=== PATIENT | female | born 1965 | race Caucasian/White ===

== ENCOUNTER → 2020-04-14 09:14 | Outpatient (BNVA) | payer BC, SELFPAY | PROVIDERS: Family Provider Nurse Practitioner Family; Visit Provider Nurse Practitioner Family | DX: Z01.419 Encounter for gynecological examination (general) (routine) without abnormal findings (principal); K21.9 Gastro-esophageal reflux disease without esophagitis; E78.2 Mixed hyperlipidemia; R53.83 Other fatigue; E55.9 Vitamin D deficiency, unspecified | CPT/HCPCS: 36415; 80053; 80061; 81001; 82306; 83036; 84443; 85025; 88175 ==

== ENCOUNTER → 2021-07-29 12:00 | Outpatient (BNVA) | payer OTHER, SELFPAY | PROVIDERS: Family Provider Nurse Practitioner Family; PCP Nurse Practitioner Family; Visit Provider Nurse Practitioner Family | DX: R53.83 Other fatigue (principal); E55.9 Vitamin D deficiency, unspecified; E78.2 Mixed hyperlipidemia | CPT/HCPCS: 80053; 80061; 81003; 82306; 83036; 84443; 85025; 87086 ==

== ENCOUNTER → 2021-08-02 09:48 | Outpatient (BNVA) | payer OTHER, SELFPAY | PROVIDERS: Family Provider Nurse Practitioner Family; PCP Nurse Practitioner Family; Visit Provider Nurse Practitioner Family | DX: N39.0 Urinary tract infection, site not specified (principal); B95.5 Unspecified streptococcus as the cause of diseases classified elsewhere; R05.9 Cough, unspecified; Z01.419 Encounter for gynecological examination (general) (routine) without abnormal findings | CPT/HCPCS: 88175 ==

== ENCOUNTER 2021-09-21 14:12 | Outpatient (CLI) | payer OTHER, SELFPAY ==
--- NOTE | 2021-09-21 15:00 | MM_ITS ---
WS: [id number] BILATERAL DIGITAL SCREENING MAMMOGRAPHY WITH CAD CLINICAL INFORMATION: SCREEN HISTORY: Screening mammogram. No current complaints. COMPARISON: August 26, 2018 TECHNIQUE: Bilateral CC and MLO views. FINDINGS: The breasts are composed of heterogeneous fibroglandular density tissue, which can limit the detectio n of small underlying mass lesions. Ovoid 9 mm asymmetry in the posterior depth left breast best seen on the MLO view. Recommend further evaluation with spot compression views and ultrasound. Right breast is unchanged and unremarkable. MM/[place] [id number] IMPRESSION: BI-RADS: 0-Incomplete: Need additional imaging evaluation FOLLOW UP: Need Additional Imaging Ovoid 9 mm asymmetry in the posterior depth LEFT breast best seen on the MLO vi ew. Recommend further evaluation with spot compression views and ultrasound.
== END 2021-09-21 14:13 | disposition home or self-care (01) ==
LOC: RADSHAW 14:18
PROVIDERS: PCP Nurse Practitioner Family; Visit Provider Nurse Practitioner Family
DX: Z12.31 Encounter for screening mammogram for malignant neoplasm of breast (principal)
CPT/HCPCS: 77067

== ENCOUNTER → 2021-09-26 11:35 | Outpatient (BNVA) | payer OTHER, SELFPAY | PROVIDERS: PCP Nurse Practitioner Family; Visit Provider Nurse Practitioner Family | DX: R92.8 Other abnormal and inconclusive findings on diagnostic imaging of breast (principal); R10.9 Unspecified abdominal pain; G89.29 Other chronic pain; N39.0 Urinary tract infection, site not specified; N30.01 Acute cystitis with hematuria | CPT/HCPCS: 81000; 81003 ==

== ENCOUNTER 2021-10-13 13:21 | Outpatient (CLI) | payer OTHER, SELFPAY ==
--- NOTE | 2021-10-13 13:30 | MM_ITS ---
WS: [id number] LEFT DIGITAL MAMMOGRAPHY WITH CAD CLINICAL INFORMATION: R92.8 - Other abnormal and inconclusive findings on diagn... COMPARISON: September 21, 2021 TECHNIQUE: 2 views of the left breast were obtained. FINDINGS: The left breast is composed of heterogeneous fibroglandular density tissue, which can limit the detec tion of small underlying mass lesions. Persistent small asymmetric density measuring 9 mm posterior d epth left breast. This is less prominent today and partially compresses out. Ultrasound is pending. ULTRASOUND BREAST LEFT TECHNIQUE: Ultrasound left breast focused area of concern. FINDINGS: Ultrasound left breast at the 100-400 and 800-1000 position. Normal underlying breast tissue. No cyst ic or solid lesions. No lesions to target for biopsy. No suspicious findings. Recommend return to [facility] screening mammography. MM/[place] [id number] IMPRESSION: BI-RADS: 2-Benign FOLLOW UP: 1 Year Follow-up Recommend return to annual screening mammography.
--- NOTE | 2021-10-13 14:00 | US_ITS ---
WS: [id number] LEFT DIGITAL MAMMOGRAPHY WITH CAD CLINICAL INFORMATION: R92.8 - Other abnormal and inconclusive findings on diagn... COMPARISON: September 21, 2021 TECHNIQUE: 2 views of the left breast were obtained. FINDINGS: The left breast is composed of heterogeneous fibroglandular density tissue, which can limit the detec tion of small underlying mass lesions. Persistent small asymmetric density measuring 9 mm posterior d epth left breast. This is less prominent today and partially compresses out. Ultrasound is pending. ULTRASOUND BREAST LEFT TECHNIQUE: Ultrasound left breast focused area of concern. FINDINGS: Ultrasound left breast at the 100-400 and 800-1000 position. Normal underlying breast tissue. No cyst ic or solid lesions. No lesions to target for biopsy. No suspicious findings. Recommend return to [facility] screening mammography. US/US breast LT limited* [id number] IMPRESSION: BI-RADS: 2-Benign FOLLOW UP: 1 Year Follow-up Recommend return to annual screening mammography.
== END 2021-10-13 13:22 | disposition home or self-care (01) ==
LOC: RADSHAW 13:27
PROVIDERS: PCP Nurse Practitioner Family; Visit Provider Nurse Practitioner Family
DX: R92.8 Other abnormal and inconclusive findings on diagnostic imaging of breast (principal)
CPT/HCPCS: 76642; 77065

== ENCOUNTER → 2021-11-08 11:11 | Outpatient (BNVA) | payer OTHER, SELFPAY | PROVIDERS: PCP Nurse Practitioner Family; Visit Provider Internal Medicine | DX: Z20.822 Contact with and (suspected) exposure to COVID-19 (principal) | CPT/HCPCS: 87635 ==

== ENCOUNTER 2021-11-14 05:42 | Day surgery (SDC) | payer OTHER, SELFPAY ==
[2021-11-10 13:25] VITALS: BMI 22.1
[2021-11-14 06:13] VITALS: BP 101/70; PULSE 67; RESP 18; TEMP 36.6; O2SAT 99
[2021-11-14 06:26] LABS: OR HCG Qualitative Urine Negative (Negative)
[2021-11-14] MEDS: sodium chloride 0.9% 1,000 ML 30 ML IV (06:28)
--- NOTE | 2021-11-14 06:58 | ANES.PREANE2 ---
Pre-Anesthetic Assessment Height/Weight: Height 1.6 m Weight 56.699 kg Temp Pulse Resp BP Pulse Ox 97.9 F 67 18 101/70 99 11/14/21 06:13 11/14/21 06:13 11/14/21 06:13 11/14/21 06:13 11/14/21 06:13 Preop Diagnosis: abdominal pain Operation Date: 11/14/21 07:15 Proposed Procedures p EGD 50306/[id number]/r10.9/g89.29(Not Applicable) - Kevin Kunz MD s Colonoscopy(Not Applicable) - Kevin Kunz MD Was Beta [place] taken within 24 hours: N/A Was Clonidine taken within 24 hours: N/A Last intake: Intake Last Liquid Date 11/13/21 Last Liquid Time 22:00 Last Solid Date 11/12/21 Last Solid Time 21:30 Social Alcohol (4-5 beer every weekend) and No tobacco Exam alert, oriented x 3, clear to auscultation bilaterally and regular rate & rhythm Airway Submandibular: within normal limits Cervical ROM: within normal limits Mallampati: Class II Dentition: full Pulmonary None reported CV/HEM None reported None reported Hepatic None reported GI Gastroesophageal Reflux Disease Metabolic None reported Musc/skel None reported Neuropsych None reported Anesthetic Plan ASA status: 2 Anesthesia: MAC Risk of > 500 ml blood loss (7ml/kg in children): No Medications/Allergies Home Medications Medication Instructions Recorded Confirmed Last Taken Type apple cider vinegar 600 mg capsule 1 mg PO DAILY 04/14/20 11/10/21 11/12/21 History slippery elm bark 400 mg capsule 1 mg PO DAILY 04/14/20 11/10/21 11/12/21 History vitamin B complex (B 1 tab PO DAILY 04/14/20 11/10/21 11/12/21 History Complex-Vitamin B12) cholecalciferol (vitamin D3) 10 10 mcg PO DAILY 11/10/21 11/10/21 11/12/21 History mcg (400 unit) tablet (Vitamin D3) zinc 10 mg tablet 10 mg PO DAILY 11/10/21 11/10/21 11/12/21 History Allergies Allergy/AdvReac Type Severity Reaction Status Date / Time No Known Allergies Allergy Verified 10/13/21 09:43 Current Medications Generic Name Dose Route Start Last Admin Trade Name Freq PRN Reason Stop Dose Admin Sodium Chloride 1,000 mls @ 30 mls/hr 11/14/21 06:00 11/14/21 06:28 Sodium Chloride 0.9% IV 30 mls/hr .Q24H LYDIA Administration PFSH Anesthesia Medical History Abnormal mammogram of left breast Breast cancer screening Chronic abdominal pain Cough Family history of lung cancer Family history of ovarian cancer Fatigue GERD (gastroesophageal reflux disease) Group B streptococcal UTI Mixed hyperlipidemia Otitis media, chronic, bilateral Vitamin D deficiency Surgical History H/O colonoscopy February 2019, normal Per Dr. [place] [facility] [place] History Denies family history of Anesthesia complication Bleeding disorder Social History Smoking and tobacco status: never smoked Second hand smoke exposure: No Smoking risk assessment/counseling performed?: No Alcohol intake: current Alcohol intake frequency: few times a month Desire information about alcohol rehabilitation?: No Counseling given: No Desire information about substance/drug rehabilitation?: No Counseling given: No Female Reproductive History Para: 2 Spontaneous abortions: No Data Anesthesia Cardiac Studies: No Data to Display
--- NOTE | 2021-11-14 07:44 | W.PM.OPSFHP ---
Same Day Surgery H&P Indication for Procedure/HPI DATE OF PROCEDURE: November 14, 2021 CHIEF COMPLAINT/INDICATIONFOR SURGICAL PROCEDURE: Abdominal pain PREOP DIAGNOSIS: abdominal pain PLANNED PROCEDURE: Operation Date: 11/14/21 07:15 Proposed Procedures p EGD [id number]/r10.9/g89.29(Not Applicable) - Kevin Kunz MD s Colonoscopy(Not Applicable) - eKvin Kunz MD Medications/Allergies* Home Medications Medication Instructions Recorded Confirmed Type apple cider vinegar 600 mg capsule 1 mg PO DAILY 04/14/20 11/10/21 History slippery elm bark 400 mg capsule 1 mg PO DAILY 04/14/20 11/10/21 History vitamin B complex (B 1 tab PO DAILY 04/14/20 11/10/21 History Complex-Vitamin B12) cholecalciferol (vitamin D3) 10 10 mcg PO DAILY 11/10/21 11/10/21 History mcg (400 unit) tablet (Vitamin D3) zinc 10 mg tablet 10 mg PO DAILY 11/10/21 11/10/21 History Allergies/Adverse Reactions Allergy/AdvReac Type Severity Reaction Status Date / Time No Known Allergies Allergy Verified 10/13/21 09:43 Current Medications: Generic Name Dose Route Start Last Admin Trade Name Freq PRN Reason Stop Dose Admin Sodium Chloride 1,000 mls @ 30 mls/hr 11/14/21 06:00 11/14/21 06:28 Sodium Chloride 0.9% IV 30 mls/hr .Q24H LYDIA Administration Pertinent History/Comorbid Conditions* Medical History (Updated 09/26/21 @ 10:22 by LYRIC Sood) Abnormal mammogram of left breast Breast cancer screening Chronic abdominal pain Cough Family history of lung cancer Family history of ovarian cancer Fatigue GERD (gastroesophageal reflux disease) Group B streptococcal UTI Mixed hyperlipidemia Otitis media, chronic, bilateral Vitamin D deficiency Surgical History (Updated 04/17/20 @ 18:57 by LYRIC Sood) H/O colonoscopy February 2019, normal Per Dr. Kunz [facility] [place] Family History (Updated 09/10/20 @ 15:22 by Baylee Shepard RN) Denies family history of Anesthesia complication Bleeding disorder Social History Smoking and tobacco status: never smoked Second hand smoke exposure: No Smoking risk assessment/counseling performed?: No Alcohol intake: current Alcohol intake frequency: few times a month Desire information about alcohol rehabilitation?: No Counseling given: No Desire information about substance/drug rehabilitation?: No Counseling given: No Pertinent Exam Findings alert, oriented x 3, clear to auscultation bilaterally, regular rate & rhythm, operative site marked and procedure specific exam findings Recommendations Surgery/Procedure today Coding Level of Care Code [employer] for [employer]
[2021-11-14 08:09] VITALS: BP 89/61; PULSE 69; RESP 16; TEMP 36.1; O2SAT 95
--- NOTE | 2021-11-14 08:11 | ANE.PACU2 ---
Inpatient post-anesthesia follow up: Airway intact: Yes Vital signs: Temperature 97 F Pulse Rate 69 Respiratory Rate 16 Blood Pressure 89/61 Pulse Oximetry 95 Oxygen Delivery Me thod Nasal Cannula Oxygen Flow Rate 3 Fraction of Inspir ed Oxygen Hydration adequate: Yes Nausea and vomiting: No Pain level: 1 Mental status: Baseline
--- NOTE | 2021-11-14 08:17 | US_ITS ---
WS: [id number] RIGHT UPPER QUADRANT ULTRASOUND HISTORY: abd. pain COMPARISON: 07/30/2019 Liver: 12.0 cm in length. Normal size liver. No bile duct dilatation or mass. Portal Vein: Normal hepatopetal flow with monophasic waveform. Gallbladder: Normally distended gallbladder with no stones or wall thickening. CBD: 0.2 cm Pancreas: Normal size and echogenicity. Right kidney: 9.2 cm in length. Normal size and echogenicity. No hydronephrosis or mass. Aorta and IVC: Unremarkable abdominal aorta and IVC. No ascites. US/US gall bladder [id number] IMPRESSION: Normal RIGHT upper quadrant ultrasound.
[2021-11-14 08:20] VITALS: BP 105/78; PULSE 73; RESP 18; O2SAT 100
== END 2021-11-14 09:03 | disposition home or self-care (01) ==
PROVIDERS: Anesthesiology; PCP Nurse Practitioner Family; Visit Provider Internal Medicine
PROC: 0DJ08ZZ Inspection of Upper Intestinal Tract, Via Natural or Artificial Opening Endoscopic (ICD-10-PCS; CPT 43235; principal; 2021-11-14 07:15)
PROC: 0DJD8ZZ Inspection of Lower Intestinal Tract, Via Natural or Artificial Opening Endoscopic (ICD-10-PCS; CPT 45378; 2021-11-14 07:15)
DX: R10.13 Epigastric pain (principal); K21.9 Gastro-esophageal reflux disease without esophagitis; E78.2 Mixed hyperlipidemia; E55.9 Vitamin D deficiency, unspecified
CPT/HCPCS: 43235; 45378; 76705; 81025; 84703; J2704; J7030

== ENCOUNTER → 2022-01-23 15:10 | Outpatient (BNVA) | payer OTHER, SELFPAY | PROVIDERS: PCP Nurse Practitioner Family; Visit Provider Nurse Practitioner | DX: M54.50 Low back pain, unspecified (principal) | CPT/HCPCS: 81000 ==

== ENCOUNTER → 2022-08-15 13:34 | Outpatient (BNVA) | payer OTHER, SELFPAY | PROVIDERS: PCP Nurse Practitioner; Visit Provider Nurse Practitioner | DX: Z01.419 Encounter for gynecological examination (general) (routine) without abnormal findings (principal) | CPT/HCPCS: 80053; 82306; 84443; 85025; 88175 ==

== ENCOUNTER → 2022-08-30 16:02 | Outpatient (BNVA) | payer OTHER, SELFPAY | PROVIDERS: PCP Nurse Practitioner; Visit Provider Nurse Practitioner | DX: R87.9 Unspecified abnormal finding in specimens from female genital organs (principal); Z01.419 Encounter for gynecological examination (general) (routine) without abnormal findings | CPT/HCPCS: 88175 ==

== ENCOUNTER 2022-10-13 13:15 | Outpatient (CLI) | payer OTHER, SELFPAY ==
--- NOTE | 2022-10-13 13:27 | MM_ITS ---
WS: [id number] BILATERAL 3D TOMOSYNTHESIS DIGITAL SCREENING MAMMOGRAPHY WITH CAD CLINICAL INFORMATION: screening HISTORY: Screening mammogram. Chronic lumpy breasts. No new complaints. COMPARISON: 2020 TECHNIQUE: Bilateral CC and MLO views. FINDINGS: The breasts are composed of heterogeneous fibroglandular density tissue, which can limit the detectio n of small underlying mass lesions. No suspicious mass, asymmetry, calcifications, or architectural d istortion. No evidence of malignancy. A few incidental punctate calcifications. MM/[place] [id number] IMPRESSION: BI-RADS: 2-Benign FOLLOW UP: 1 Year Follow-up Recommend return to annual screening mammography.
== END 2022-10-13 13:16 | disposition home or self-care (01) ==
LOC: RAD 13:16
PROVIDERS: PCP Nurse Practitioner; Visit Provider Nurse Practitioner
DX: Z12.31 Encounter for screening mammogram for malignant neoplasm of breast (principal)
CPT/HCPCS: 77063; 77067

== ENCOUNTER → 2023-11-28 09:51 | Outpatient (BNVA) | payer OTHER, SELFPAY | PROVIDERS: PCP Nurse Practitioner; Visit Provider Nurse Practitioner Family | DX: E55.9 Vitamin D deficiency, unspecified (principal); Z01.419 Encounter for gynecological examination (general) (routine) without abnormal findings; R53.83 Other fatigue; Z79.899 Other long term (current) drug therapy; Z13.6 Encounter for screening for cardiovascular disorders; Z78.0 Asymptomatic menopausal state | CPT/HCPCS: 80053; 80061; 81003; 82306; 83036; 84443; 85025; 88175 ==

== ENCOUNTER 2023-12-05 10:08 | Outpatient (CLI) | payer OTHER, SELFPAY ==
--- NOTE | 2023-12-05 10:20 | MM_ITS ---
WS: [id number] BILATERAL SCREENING DIGITAL TOMOSYNTHESIS MAMMOGRAM WITH CAD HISTORY: SCREENING COMPARISON: 10/13/2022, 08/26/2018 Bilateral CC and MLO views with tomosynthesis and synthetic mammography submitted. Computer aided det ection analyzed. Breast composition: The breasts are extremely dense, which lowers the sensitivity of mammography. No suspicious masses, microcalcifications or architectural distortion. Benign calcifications LEFT breast . IMPRESSION: MM/[place] [id number] BI-RADS: 2-Benign FOLLOW UP: 1 Year Follow-up
== END 2023-12-05 10:09 | disposition home or self-care (01) ==
LOC: RAD 10:09
PROVIDERS: PCP Nurse Practitioner; Visit Provider Nurse Practitioner Family
DX: Z12.31 Encounter for screening mammogram for malignant neoplasm of breast (principal)
CPT/HCPCS: 77063; 77067

== ENCOUNTER → 2024-07-22 10:45 | Outpatient (BNVA) | payer OTHER, SELFPAY | PROVIDERS: PCP Nurse Practitioner Family; Visit Provider Nurse Practitioner Family | DX: R30.0 Dysuria (principal); R39.9 Unspecified symptoms and signs involving the genitourinary system | CPT/HCPCS: 81000 ==

== ENCOUNTER → 2024-11-28 09:42 | Outpatient (BNVA) | payer OTHER, SELFPAY | PROVIDERS: PCP Nurse Practitioner Family; Visit Provider Nurse Practitioner Family | DX: Z13.6 Encounter for screening for cardiovascular disorders (principal); Z12.4 Encounter for screening for malignant neoplasm of cervix; E78.2 Mixed hyperlipidemia; E55.9 Vitamin D deficiency, unspecified; Z01.419 Encounter for gynecological examination (general) (routine) without abnormal findings; Z79.899 Other long term (current) drug therapy | CPT/HCPCS: 80053; 80061; 81003; 82306; 83036; 84443; 85025; 88175 ==

== ENCOUNTER 2024-12-08 12:43 | Outpatient (CLI) | payer OTHER, SELFPAY ==
--- NOTE | 2024-12-08 12:53 | USR_ITS ---
PROCEDURE INFORMATION: Exam: US Pelvis Transabdominal, Complete, and US Pelvis Transvaginal, and US Duplex Artery and Vein, Ovaries, Complete, Non-obstetric Exam date and time: 12/08/2024 2:41 PM Age: 59 years old Clinical indication: Pelvic pain; Additional info: Pelvic perineal pain, PT having mammo too TECHNIQUE: Imaging protocol: Real-time complete transabdominal and transvaginal pelvic ultrasound (non-obstetric) with image documentation. Transvaginal imaging was used for better evaluation of the endometrium, adnexa, and/or cervix. Real-time duplex ultrasound scan of the arterial and venous flow of the ovaries with B-mode, color Doppler flow and spectral waveform analysis. Duplex exam was performed to evaluate for torsion and other vascular conditions. COMPARISON: CT abdomen pelvis w con* [id number] 07/30/2019 3:24 PM FINDINGS: Uterus: The uterus is anteverted. Uterine contours are normal. The endometrium is very thin and suboptimally visualized. Endometrial stripe thickness measures 2 mm. The uterus measures 6.6 x 3.2 x 2.7 cm for a volume of 30 cc. Right ovary/adnexa: The right ovary is morphologically normal. The right ovary measures 2.3 x 2.0 x 1.9 cm for a volume of 4.7 cc. Left ovary/adnexa: The left ovary is morphologically normal. The left ovary measures 1.9 x 1.7 x 1.6 cm for a volume of 2.7 cc. Intraperitoneal space: No intraperitoneal free fluid. Urinary bladder: The urinary bladder is unremarkable. Vasculature: There is normal color Doppler signal and normal arterial and venous spectral Doppler waveforms in the left ovary. There is normal color Doppler signal and normal arterial and venous spectral Doppler waveforms in the right ovary. US/US pelv w/transvag [id number] IMPRESSION: No pathologic findings.
--- NOTE | 2024-12-08 12:53 | MM_ITS ---
WS: [id number] BILATERAL 3D TOMOSYNTHESIS DIGITAL SCREENING MAMMOGRAPHY WITH CAD CLINICAL INFORMATION: SCREENING HISTORY: Screening mammogram. No current complaints. COMPARISON: 2023 TECHNIQUE: Bilateral CC and MLO views. FINDINGS: The breasts are composed of heterogeneous fibroglandular density tissue, which can limit the detection of small underlying mass lesions. No suspicious mass, asymmetry, calcifications, or architectural distortion. No evidence of malignancy. Benign calcifications LEFT breast MM/MM scr tomosynthesis [id number] IMPRESSION: DENSITY: The breasts are heterogeneously dense, which may obscure small masses. BI-RADS: 2 - Benign FOLLOW UP: 1 Year Follow-up Recommend return to annual screening mammography.
== END 2024-12-08 12:44 | disposition home or self-care (01) ==
LOC: RAD 12:44
PROVIDERS: PCP Nurse Practitioner Family; Visit Provider Nurse Practitioner Family
DX: Z12.31 Encounter for screening mammogram for malignant neoplasm of breast (principal); R10.2 Pelvic and perineal pain; R92.333 Mammographic heterogeneous density, bilateral breasts; R92.1 Mammographic calcification found on diagnostic imaging of breast
CPT/HCPCS: 76830; 76856; 77063; 77067

== ENCOUNTER 2025-01-22 10:15 | Outpatient (CLI) | payer OTHER, SELFPAY ==
--- NOTE | 2025-01-22 10:30 | CTR_ITS ---
PROCEDURE INFORMATION: Exam: CT Chest Without Contrast; Diagnostic Exam date and time: 01/22/2025 10:24 AM Age: 59 years old Clinical indication: Condition or disease; Lung condition and disease; Pulmonary nodule, solitary; Additional info: R91.1 - solitary pulmonary nodule TECHNIQUE: Imaging protocol: Diagnostic computed tomography of the chest without contrast. Radiation optimization: All CT scans at this facility use at least one of these dose optimization techniques: automated exposure control; mA and/or kV adjustment per patient size (includes targeted exams where dose is matched to clinical indication); or iterative reconstruction. COMPARISON: CT abdomen pelvis w con* [id number] 07/30/2019 3:24 PM RADIATION DOSE METRICS: Total DLP (mGy-cm): 215.38 FINDINGS: Thyroid: The partially imaged bilateral thyroid lobes are unremarkable. Thymus: Mild residual thymic tissue excessive for the patient's age. Lungs: A 4.7 mm noncalcified pulmonary nodule is noted in the lateral basilar segment of the left lower lobe (LOC 215). Pleural spaces: No pneumothorax. No pleural effusion. Heart: Minimal pericardial effusion. Coronary arteries: No coronary artery calcifications. Lymph nodes: No enlarged lymph nodes. Vasculature: Unremarkable. No aortic aneurysm. Bones/joints: No acute abnormality. No acute fracture. Soft tissues: Unremarkable. CT/CT chest wo con [id number] IMPRESSION: 1. Noncalcified left lobe pulmonary nodule. dalia Rivas., Fleischner Society, 2017, recommendations are: For patients at low risk (minimal or absent history of smoking and of other known risk factors), no routine follow-up is indicated. For patients at high risk (history of smoking or of other known risk factors), consider optional CT at 12 months . The 4 year 6 month follow-up interval exceeds the recommendations, no additional follow-up required/recommended. 2. Mild residual thymic tissue excessive for the patient's age. This may be seen in certain anemias, thyroid diseases, and in myasthenia gravis. Clinical correlation is recommended. 3. Minimal pericardial effusion.
== END 2025-01-22 10:16 | disposition home or self-care (01) ==
PROVIDERS: PCP Nurse Practitioner Family; Visit Provider Nurse Practitioner Family
DX: R91.1 Solitary pulmonary nodule (principal); R93.89 Abnormal findings on diagnostic imaging of other specified body structures
CPT/HCPCS: 71250

== ENCOUNTER → 2025-06-18 14:01 | Outpatient (BNVA) | payer OTHER, SELFPAY | PROVIDERS: PCP Nurse Practitioner Family; Visit Provider Nurse Practitioner Women's Health | DX: R39.9 Unspecified symptoms and signs involving the genitourinary system (principal) | CPT/HCPCS: 87086 ==

== ENCOUNTER → 2025-08-03 13:15 | Outpatient (BNVA) | payer OTHER, SELFPAY | PROVIDERS: PCP Nurse Practitioner Family; Visit Provider Nurse Practitioner Women's Health | DX: N95.0 Postmenopausal bleeding (principal) | CPT/HCPCS: 76830 ==